=== PATIENT | female | born 1975 | race Two or more races ===

== ENCOUNTER 2017-06-01 15:37 | Emergency (ER) | payer BC, MEDICAID ==
[~2017-06-01] VITALS: Ht 162.6 cm; Wt 75.6 kg
[2017-06-01] MEDS ORDERED: KETOROLAC 30 MG/1 ML ONE (16:20)
[2017-06-01] MEDS ORDERED: DIPHENHYDRAMINE 50 MG/ML, 1ML ONE (16:20)
[2017-06-01] MEDS ORDERED: METOCLOPRAMIDE 5 MG/ML, 2ML ONE (16:20)
[2017-06-01] MEDS ORDERED: DIPHENHYDRAMINE 50 MG/ML, 1ML IVPush ONE (16:30)
[2017-06-01] MEDS ORDERED: METOCLOPRAMIDE 5 MG/ML, 2ML IVPush ONE (16:30)
[2017-06-01] MEDS ORDERED: KETOROLAC 30 MG/1 ML IVPush ONE (16:30)
[2017-06-01] MEDS ORDERED: SODIUM CHLORIDE 0.9% 1,000ML IVBOLUS ONE (16:30)
[2017-06-01] MEDS ORDERED: SODIUM CHLORIDE FLUSH 10ML SYR IVF ONE (16:30)
[2017-06-01] MEDS ORDERED: BUTA1CAP57 PO (16:47)
[2017-06-01 17:41] VITALS: BP 132/73
== END 2017-06-01 17:45 | disposition home or self-care (01) ==
LOC: ED 17:18
DX: G43.709 Chronic migraine without aura, not intractable, without status migrainosus (principal)
CPT/HCPCS: 96361; 96374; 96375; 99284; J1200; J1885; J2765; J7030